=== PATIENT | male | born 1960 | race Caucasian/White ===

== ENCOUNTER → 2020-11-25 | Outpatient (CLI) | payer MEDICARE | LOC: KOH-I 09:00 | DX: J44.9 Chronic obstructive pulmonary disease, unspecified (principal); J60 Coalworker's pneumoconiosis; R91.8 Other nonspecific abnormal finding of lung field | CPT/HCPCS: 36600; 71250; 82803; 94010; 94729 ==

== ENCOUNTER → 2020-11-25 | Outpatient (CLI) | payer MEDICARE | LOC: HEART 5 14:06 | DX: J60 Coalworker's pneumoconiosis (principal); R94.2 Abnormal results of pulmonary function studies; F17.210 Nicotine dependence, cigarettes, uncomplicated | CPT/HCPCS: 94010; 94729 ==

== ENCOUNTER → 2020-11-25 | Outpatient (CLI) | payer MEDICARE | LOC: RT 10:57 | DX: G47.34 Idiopathic sleep related nonobstructive alveolar hypoventilation (principal) | CPT/HCPCS: 36600; 82803 ==